=== PATIENT | female | born 2005 | race Hispanic/Latino ===

== ENCOUNTER 2024-04-25 16:02 | Emergency (ER) | payer OTHER ==
[2024-04-25] MEDS ORDERED: Acetaminophen 325 MG TAB ONE (16:56)
== END 2024-04-25 17:00 | disposition home or self-care (01) ==
LOC: NAV ERS 16:02
DX: S16.1XXA Strain of muscle, fascia and tendon at neck level, initial encounter (principal); S39.012A Strain of muscle, fascia and tendon of lower back, initial encounter; S29.012A Strain of muscle and tendon of back wall of thorax, initial encounter; V48.6XXA Car passenger injured in noncollision transport accident in traffic accident, initial encounter
CPT/HCPCS: 99283